=== PATIENT | female | born 1965 | race Caucasian/White ===

== ENCOUNTER → 2018-11-05 10:21 | Outpatient (CLI) | payer BC ==
--- NOTE | 2018-11-05 18:07 | EC ---
PATIENT:SANCHEZ JANG DATE OF SERVICE: 11/05/18 SEX: F MEDICAL RECORD: [id number] DATE OF : 65 [facility] AGE OF PATIENT: 53 ADMISSION DATE: 11/05/18 REFERRING PHYSICIAN: INTERPRETING PHYSICIAN: DEB NINO MD ECHOCARDIOGRAM REPORT ECHO CHARGES 4 ECHO COMPLETE Date: 11/05/18 CLINICAL DIAGNOSIS: HTN/MURMUR/SOB/RBBB ECHOCARDIOGRAPHIC MEASUREMENTS (adult normal given) AC root (d.<3.7cm) 2.9 cm LV Septum d (<1.2 cm> 1.0 cm Valve Excursion 1.6 cm LV Septum (systole) 1.5 cm Left Atria (s.<4.0cm> 2.5 cm LVPW d(<1.2cm) 1.1 cm RV (d.<2.3cm) 2.2 cm LVPW (sytole) 1.8 cm LV diastole(<5.6CM) 4.3 cm MV E-F(>70mm/sec) cm LV systole 2.1 cm LVOT Diameter 1.5 cm MV exc.(>10mm) cm Est.ejection fraction (50-75%) % DOPPLER: LVIT cm/sec A 122 cm/sec E 154 cm/sec LA cm/sec RVSP 30.2 mmHg LVOT 108 cm/sec AOP1/2T m/s Asc. Ao 132 cm/sec RVOT 93.0 cm/sec RA cm/sec PA 96.0 cm/sec AV Gradient Peak 6.9 mmHg AV Mean 3.5 mmHg AV Area 1.4 cm MV Gradient Peak 9.4 mmHg MV Mean 2.4 mmHg MV Area cm COMMENTS: OP - HC Lead Clinical Research Coordinator: Justo LYNNOE Chronometer Adjuster: 1 Dr. Nino TAPE# PACS Pericardial Effusion N DATE OF SERVICE: 11/05/2018 FINDINGS: 1. Left ventricular chamber size is within normal limits. Left ventricular systolic function is normal. Overall ejection fraction is estimated at 60%. 2. Left atrium, right atrium, and right ventricular chamber sizes are within normal limit. 3. Valvular structures have normal structure and motion. 4. Doppler interrogation reveals mild mitral regurgitation and mild tricuspid regurgitation. No other valvular insufficiency or stenosis. Pulmonary systolic ECHOCARDIOGRAM REPORT [id number] SANCHEZ JANG pressure is normal, estimated at 32 mmHg. 5. No evidence of pericardial effusion or left ventricular thrombus. TRANSINT:[id number] Voice Confirmation ID: [id number] DOCUMENT ID: [id number] DEB NINO MD at 1807 CC: [id number] DICTATION DATE: 11/05/18 1629 [employer] DISPATCHER: 11/05/18 1732 [facility] [address] [id number]
== END | disposition home or self-care (01) ==
LOC: D.HCCARDIO 10:21
PROVIDERS: ATTEND Internal Medicine Interventional Cardiology
DX: R01.1 Cardiac murmur, unspecified (principal)